=== PATIENT | male | born 1950 | race Caucasian/White ===

== ENCOUNTER 2022-06-20 08:20 | Outpatient (CLI) | payer MEDICARE, SELFPAY | END 2022-06-20 08:21 | disposition home or self-care (01) | LOC: NFLDREF 06-22 04:20 | PROVIDERS: PCP Internal Medicine; Referring Provider Internal Medicine; Visit Provider Internal Medicine | DX: Z00.00 Encounter for general adult medical examination without abnormal findings (principal); E78.5 Hyperlipidemia, unspecified; Z12.5 Encounter for screening for malignant neoplasm of prostate; E78.00 Pure hypercholesterolemia, unspecified; N40.0 Benign prostatic hyperplasia without lower urinary tract symptoms | CPT/HCPCS: 80053; 80061; 84153 ==

== ENCOUNTER 2022-07-04 13:29 | Emergency (ER) | payer MEDICARE, SELFPAY ==
[2022-07-04 13:38] VITALS: BP 124/85; PULSE 128; RESP 20; TEMP 37.2; O2SAT 94; BMI 25.1
--- NOTE | 2022-07-04 14:16 | ED_ITS ---
HPI - General Adult General Chief complaint: Shortness of Breath/Dyspnea Stated complaint: Aching, fatigue, fever Time Seen by Provider: 07/04/22 13:50 History of Present Illness HPI narrative: This 72-year-old female comes in reporting upper respiratory symptoms for the past couple days. He states that he had to tests for COVID that he administered and both returned positive. He reports occasional cough and has had some body aches and pains. He arrives with normal vital signs except for a heart rate that is increased at around 125-130 beats per minute. His oximetry is at 94% on room air. He states that he is otherwise healthy and recently had a history and physical. He is taking atorvastatin and omeprazole and tadalafil. Related Data Home Medications Medication Instructions Recorded Confirmed latanoprost 0.005 % eye drops 1 drp ophthalmic (eye) .Bedtime 06/26/22 07/04/22 Previous Rx's Medication Instructions Recorded atorvastatin 40 mg tablet 40 mg PO .hs #90 tabs 06/26/22 omeprazole 20 mg capsule,delayed 20 mg PO QDAY GERD #90 caps 06/26/22 release tadalafil 2.5 mg tablet (Cialis) 2.5 mg PO QDAY BPH #30 tabs 06/26/22 acetaminophen 300 mg-codeine 30 mg 1 tab PO Q6H PRN pain #15 tabs 07/04/22 tablet nirmatrelvir 150 mg-ritonavir 100 See Rx Instructions PO .COMPLEX 07/04/22 mg tablets in a dose pack (EUA) #20 ea (Paxlovid) Allergies Allergy/AdvReac Type Severity Reaction Status Date / Time No Known Drug Allergies Allergy Verified 06/26/22 08:10 Review of Systems Status of ROS: Reports: 10 or more systems reviewed and unremarkable except as noted in History and below Narrative: Constitutional: No fevers, no weight gain or loss. Generalized body aches and pains. Eyes: No discharge. No vision changes. HENT: No congestion, no sore throat, no ear pain. Cardiovascular: No chest pain, no palpitations. Respiratory: No shortness of breath, no wheezes. He reports a cough. Gastrointestinal: No abdominal pain, no vomiting, no diarrhea. Genitourinary: No dysuria, no hematuria. Musculoskeletal: Normal range of motion. Skin: No rashes, no pruritis. Neurological: No dizziness, weakness, sensory change, speech change. Endo/Heme/Allergies: No bruising or bleeding. No polydipsia. Pysch: no suicidality, no anxiety, no insomnia. All other systems reviewed and are negative. [facility] Medical History (Updated 07/04/22 @ 16:26 by Arnel Sexton MD) BPH (benign prostatic hyperplasia) ?N40.0 - Benign prostatic hyperplasia without lower urinary tract symptoms (ICD-10) History of colonic polyps (07/05/11) ?Z86.010 - Personal history of colonic polyps (ICD-10) Low back pain ?M54.50 - Low back pain, unspecified (ICD-10) Seborrheic keratosis ?L82.1 - Other seborrheic keratosis (ICD-10) Sinusitis ?J32.9 - Chronic sinusitis, unspecified (ICD-10) Surgical History (Updated 06/21/22 @ 14:09 by Iram Carr) History of colonoscopy (07/05/11) ?Z98.890 - Other specified postprocedural states (ICD-10) History of inguinal hernia repair (2013) ?Z98.890 - Other specified postprocedural states (ICD-10) ?Z87.19 - Personal history of other diseases of the digestive system (ICD-10) Social History Smoking Status: Never smoker Do you use any of these nicotine containing products: None Second hand tobacco smoke exposure: No How often do you have a drink containing alcohol: monthly or less How many standard drinks containing alcohol do you have on a typical day: 1 or 2 How often do you have six or more drinks on one occasion: Never AUDIT-C Alcohol total score: 1 Non-prescribed substance use: denies use Little interest or pleasure in doing things: not at all Feeling down, depressed, or hopeless: not at all service: No Exam Narrative: Exam Narrative: Constitutional: Well-developed, well-nourished, no acute distress. HEENT: Normocephalic, atraumatic. Neck: Normal range of motion. Nontender. Supple. Heart: Regular. No murmurs. Tachycardia. Intact distal pulses. Lungs: Clear to auscultation. No chest discomfort. No wheezes, rhonchi, or rales. Abdomen: Normal bowel sounds. Nontender. No rebound tenderness. Genitalia: Deferred. Back: No midline tenderness. Normal range of motion. Extremities: Normal range of motion. No injury. Skin: Intact. No rash. Warm. No erythema or pallor. Neurologic: No altered sensation. No weakness. Alert and oriented. Psychiatric: No suicidality. No anxiety or depression. No insomnia. Nursing notes and vitals signs are reviewed. Const: Vital Signs, click to edit/add: Vital Signs - 24 hr 07/04/22 13:38 Temperature 98.9 F Pulse Rate [Pulse Oximeter] 128 H Respiratory Rate 20 Blood Pressure [Ri ght Upper Arm] 124/85 Pulse Oximetry 94 Oxygen Delivery Me thod Room Air Course Vital Signs Vital signs: Initial Vital Signs Temperature 98.9 F 07/04/22 13:38 Temperature Source Temporal Artery Scan 07/04/22 13:38 Pulse Rate 128 H 07/04/22 13:38 Pulse Rhythm Regular 07/04/22 13:38 Pulse Strength 3+ Normal 07/04/22 13:38 Respiratory Rate 20 07/04/22 13:38 Blood Pressure 124/85 07/04/22 13:38 Blood Pressure Mean 98 07/04/22 13:38 Blood Pressure Position Sitting 07/04/22 13:38 Pulse Oximetry 94 07/04/22 13:38 Oxygen Delivery Method Room Air 07/04/22 13:38 Vital Signs Temperature 98.9 F 07/04/22 13:38 Pulse Rate 128 H 07/04/22 13:38 Respiratory Rate 20 07/04/22 13:38 Blood Pressure 124/85 07/04/22 13:38 Pulse Oximetry 94 07/04/22 13:38 Oxygen Delivery Method Room Air 07/04/22 13:38 Temperature 98.9 F 07/04/22 13:38 Pulse Rate 128 H 07/04/22 13:38 Respiratory Rate 20 07/04/22 13:38 Blood Pressure 124/85 07/04/22 13:38 Pulse Oximetry 94 07/04/22 13:38 Oxygen Delivery Method Room Air 07/04/22 13:38 Medical Decision Making MDM Narrative Medical decision making narrative: This 72-year-old male comes in with symptoms suspicious for COVID. He did do a home test twice but it was within test unit each time. Testing here today confirms a positive COVID result. The patient does have tachycardia but is maintaining oximetry on room air at around 96-97%. I discussed treatment options and the patient is interested in using Paxil of id. He is taking a couple medications that will need to be discontinued during this time, namely atorvastatin and tadalafil. He also received a prescription for some tablets of Tylenol 3 for symptomatic relief. I advised him to return if becoming more short of breath or if oximetry is below 90% at rest. He states that he does have an oximeter that he can use at home as needed. Lab Data Labs: Lab Results 07/04/22 Range/Units 13:52 SARS-CoV-2 (PCR) POSITIVE SARS-CoV-2 A (Negative) Influenza Type A (PCR) Negative PCR FLU A (Negative) Influenza Type B (PCR) Negative PCR FLU B (Negative) RSV (PCR) Negative PCR RSV (Negative) ECG Data Attestation: I personally reviewed and interpreted this ECG as follows: Interpretation: Sinus tachycardia, rate 118 beats per minute. There are no specific ST or T- wave abnormalities. Discharge Plan Discharge Clinical Impression: COVID-19 Patient Disposition: Home, Self-Care Condition: Unchanged Additional Instructions: Take Paxil of it as directed. Hold atorvastatin and tadalafil while taking this medicine. Follow up with MD or return if worsening symptoms happen. Prescriptions: New Paxlovid (EUA) 150-100 mg tablets,dose pack See Rx Instructions PO .COMPLEX Qty: 20 0RF Rx Instructions: orally per package directions acetaminophen-codeine 300-30 mg tablet 1 tab PO Q6H PRN (Reason: pain) Qty: 15 0RF No Action latanoprost 0.005 % drops 1 drp ophthalmic (eye) .Bedtime atorvastatin 40 mg tablet 40 mg PO .hs Qty: 90 3RF omeprazole 20 mg capsule,delayed release(DR/EC) 20 mg PO QDAY Qty: 90 3RF tadalafil [Cialis] 2.5 mg tablet 2.5 mg PO QDAY Qty: 30 3RF Follow Up/Referrals: Ernst Esparza MD [Primary Care Provider] - Stand Alone Forms: [employer] Info Instructions
[2022-07-04 16:00] LABS: PCR FLU A Negative PCR FLU A (Negative); PCR FLU B Negative PCR FLU B (Negative); PCR RSV Negative PCR RSV (Negative)
[2022-07-04 16:17] LABS: SARS PCR* POSITIVE SARS-CoV-2 (Negative)
[2022-07-04 16:48] VITALS: RESP 20
== END 2022-07-04 16:45 | disposition home or self-care (01) ==
PROVIDERS: Emergency Provider Emergency Medicine Emergency Medical Services; PCP Internal Medicine
DX: U07.1 COVID-19 (principal)
CPT/HCPCS: 87631; 93005; 99284

== ENCOUNTER 2023-06-03 08:02 | Outpatient (CLI) | payer MEDICARE, SELFPAY | END 2023-06-03 08:03 | disposition home or self-care (01) | LOC: NFLDREF 06-13 14:58 | PROVIDERS: PCP Internal Medicine; Referring Provider Internal Medicine; Visit Provider Internal Medicine | DX: E78.5 Hyperlipidemia, unspecified (principal); Z12.5 Encounter for screening for malignant neoplasm of prostate | CPT/HCPCS: 80053; 80061; G0103 ==

== ENCOUNTER 2024-06-05 08:33 | Outpatient (CLI) | payer MEDICARE, SELFPAY | END 2024-06-05 08:34 | disposition home or self-care (01) | LOC: NFLDREF 06-07 16:43 | PROVIDERS: PCP Internal Medicine; Referring Provider Internal Medicine; Visit Provider Internal Medicine | DX: N40.0 Benign prostatic hyperplasia without lower urinary tract symptoms (principal); E78.5 Hyperlipidemia, unspecified; E78.00 Pure hypercholesterolemia, unspecified; Z12.5 Encounter for screening for malignant neoplasm of prostate | CPT/HCPCS: 80053; 80061; G0103 ==

== ENCOUNTER 2024-06-26 08:02 | Outpatient (CLI) | payer MEDICARE, SELFPAY ==
--- NOTE | 2024-06-26 08:15 | CRLHL7_ITS ---
For Patients: As a result of the 21st Century Cures Act, medical imaging exams and procedure reports are released immediately into your electronic medical record. You may view this report before your referring provider. If you have questions, please contact your health care provider. EXAM: MRI OF THE LEFT SHOULDER WITHOUT CONTRAST CLINICAL INDICATION: Left shoulder pain. COMPARISON PLAIN FILMS: None available at time of interpretation. COMPARISON CROSS-SECTIONAL IMAGING STUDIES: None available at time of interpretation. TECHNICAL: Axial, sagittal oblique and coronal oblique T1, PD, PD FS and T2-weighted images. Shoulder surface coil. FINDINGS: ROTATOR CUFF TENDONS AND MUSCLES AND DELTOID: Supraspinatus: Diffuse increased signal and thickening in the supraspinatus tendon consistent with moderate tendinopathy. In addition there are few linear areas of increased T2 signal within the supraspinatus tendon which could be due to low-grade interstitial tears more prominent tendinopathy. No focal tendon gap. No muscle atrophy or edema. Infraspinatus: Ljpw-fr-zjzwufal tendinopathy. No tendon tear. No muscle atrophy or edema. Subscapularis: No tendinosis, tendon tearing, muscle atrophy or muscle edema. Teres Minor: No tendinosis, tendon tearing, muscle atrophy or muscle edema. Deltoid: No muscle atrophy or edema. BURSA: Subacromial-subdeltoid: Small amount of fluid in the subacromial subdeltoid bursa. BICEPS TENDON, LONG HEAD: The long head of the biceps tendon is appropriately positioned within the bicipital groove without tendon subluxation or dislocation. The biceps gustavo mechanism is intact. The biceps anchor appears grossly intact. There is no significant tendinosis or tendon tearing. CORACOACROMIAL ARCH: Acromial Morphology: Type 2 acromial morphology. No abnormal lateral or anterior downward sloping of the acromion. Moderate size subacromial enthesophyte. No os acromiale. Acromiohumeral Interval: Normal. Coracohumeral Interval: Normal. ACROMIOCLAVICULAR JOINT REGION: AC Joint: Mild arthropathy with inferior marginal osteophytes. Ligaments: The coracoclavicular ligaments are intact. GLENOHUMERAL JOINT: Joint space: No effusion or synovitis. Humeral Head Articular Cartilage: No focal cartilage defect or underlying subchondral marrow changes. Glenoid Articular Cartilage: No focal cartilage defect or underlying subchondral marrow changes. Labrum: No labral tear or paralabral cyst. Alignment: Maintained. Capsule: No capsular edema or abnormal capsular thickening. OSSEOUS STRUCTURES: No fracture, marrow edema or marrow replacement process. OTHER FINDINGS: There is no abnormality within the suprascapular or spinoglenoid notches nor within the quadrilateral space. No axillary adenopathy or mass. IMPRESSION: 1. Moderate supraspinatus tendinopathy. Focal areas of increased T2 signal in the supraspinatus tendon could be due to interstitial tears or more prominent tendinopathy. No focal tendon gap. 2. Mild to moderate infraspinatus tendinopathy. 3. Fluid in the subacromial subdeltoid bursa. 4. Moderate-sized subacromial enthesophyte. 5. Mild arthropathy in the acromioclavicular joint. Dictated by Richardson Ferreira MD @ 06/26/2024 12:38:17 PM (Electronically Signed)
== END 2024-06-26 08:03 | disposition home or self-care (01) ==
LOC: MRI 08:03
PROVIDERS: PCP Internal Medicine; Visit Provider Internal Medicine
DX: M25.512 Pain in left shoulder (principal); M75.52 Bursitis of left shoulder; M12.812 Other specific arthropathies, not elsewhere classified, left shoulder; M71.9 Bursopathy, unspecified
CPT/HCPCS: 73221

== ENCOUNTER 2024-08-17 10:05 | Outpatient (CLI) | payer MEDICARE, SELFPAY ==
--- NOTE | 2024-08-17 11:14 | P.ANES_ITS ---
Anesthesia Charges Start Date/Time Anesthesia Start Date: 08/17/24 Anesthesia Start Time: 10:47 Stop Date/Time Anesthesia Stop Date: 08/17/24 Anesthesia Stop Time: 11:08 Summary Extremes of Age - Over 70 or under 1: LAWN MOWER SHARPENER Coding CPT Codes CPT Codes: PIPPA LWR INTST SCR COLSC - 01394 ([id number]) P2 - PATIENT W/MILD SYST DISEASE, QX - LAWN MOWER SHARPENER SVC W/ MD MED DIRECTION, QK - TUBE DRAW HELPER 2-4 CNCRNT ANES PROC Additional Codes: Summary - Extremes of Age - Over 70 or under 1: LAWN MOWER SHARPENER ([id number])
--- NOTE | 2024-08-17 11:14 | W.ANESCHARGE ---
Anesthesia Charges Start Date/Time Anesthesia Start Date: 08/17/24 Anesthesia Start Time: 10:47 Stop Date/Time Anesthesia Stop Date: 08/17/24 Anesthesia Stop Time: 11:08 Summary Extremes of Age - Over 70 or under 1: BUSINESS INTELLIGENCE DIRECTOR Coding CPT Codes CPT Codes: PIPPA LWR INTST SCR COLSC - 09260 ([id number]) P2 - PATIENT W/MILD SYST DISEASE, QX - BUSINESS INTELLIGENCE DIRECTOR SVC W/ MD MED DIRECTION, QK - JET WORKER 2-4 CNCRNT ANES PROC Additional Codes: Summary - Extremes of Age - Over 70 or under 1: BUSINESS INTELLIGENCE DIRECTOR ([id number])
--- NOTE | 2024-08-17 11:41 | W.ANESCHARGE ---
Anesthesia Charges Start Date/Time Anesthesia Start Date: 08/17/24 Anesthesia Start Time: 10:47 Stop Date/Time Anesthesia Stop Date: 08/17/24 Anesthesia Stop Time: 11:08 Summary Extremes of Age - Over 70 or under 1: MDA Coding CPT Codes CPT Codes: ANES LWR INTST SCR COLSC - 52255 ([id number]) QK - TELECOMMUNICATOR SUPERVISOR 2-4 CNCRNT ANES PROC, QX - MOTION GRAPHICS DESIGNER SVC W/ MD MED DIRECTION, P2 - PATIENT W/MILD SYST DISEASE Additional Codes: Summary - Extremes of Age - Over 70 or under 1: MDA ([id number])
== END 2024-08-17 10:06 | disposition home or self-care (01) ==
LOC: OP CLINIC 10:06
PROVIDERS: PCP Internal Medicine; Visit Provider Internal Medicine
DX: Z12.11 Encounter for screening for malignant neoplasm of colon (principal); Z86.0109 Personal history of other colon polyps; K57.30 Diverticulosis of large intestine without perforation or abscess without bleeding
CPT/HCPCS: 00812; 45378; 99100; J2704

== ENCOUNTER 2024-09-01 09:00 | Outpatient (RCR) | payer MEDICARE, SELFPAY ==
--- NOTE | 2024-08-13 16:31 | PT.OPEX ---
PT [place] Outpatient Eval PT [facility] Outpatient Eval Start: 08/13/24 08:25 Freq: Status: Active Protocol: Document 08/13/24 08:26 FELISHA (Rec: 08/13/24 16:30 [facility] [id number]) E-signed By Acacia Haro PT Physical Therapy Outpatient Evaluation Insurance Information Recert Due Date 11/10/24 Medical Diagnosis LEFT SHOULDER RTC TENDINOPATHY INCOMPLETE TEAR OF RTC OA Treating Diagnosis SHOULDER PAIN SHOULDER STIFFNESS Imaging Report Information IMPRESSION: MRI 06/26/24 1. Moderate supraspinatus tendinopathy. Focal areas of increased T2 signal in the supraspinatus tendon could be due to interstitial tears or more prominent tendinopathy. No focal tendon gap. 2. Mild to moderate infraspinatus tendinopathy. 3. Fluid in the subacromial subdeltoid bursa. 4. Moderate-sized subacromial enthesophyte. 5. Mild arthropathy in the acromioclavicular joint. Referring MD MOINQUE PARSONS Subjective Preferred Name DARNELL Tierney PATIENT REPORTS AN INCIDENT ~ 2YRS AGO THAT MAY HAVE BEEN THE ONSET OF HIS LEFT SHOULDER PAIN. HE DESCRIBES DOING TO SOME WORK WHERE HE WAS PAINTING QUITE A BIT AND MUCH IT OH. HE STATES, I COULD FEEL IT THEN BUT I JUST THOUGHT THE SORENESS WOULD GO AWAY. AND IT DID FOR THE MOST PART. BUT, IN THE LAST 6-9MO IT HAS PROGRESSIVELY INCREASED . HE DENIES ANY LIMITATION IN REGARD TO HIS DAILY ACTIVITIES BUT RATHER ADAPTING HIS REACHING AND JUST GETTING THROUGH IT IF THE ACTIVITY WAS PAINFUL. HE DOES NOT USE ANY OTC NOR DOES HE ICE BUT DOES PUT TOPICAL ANALGESICS ON HIS SHOULDER INTERMITTENTLY. HE IS HOPING TO IMPROVE HIS SYMPTOMS AND AVOID ANY SURGICAL INTERVENTION. Pain Comments Date of Last Physician Visit 07/14/24 Current Work Status Retired Occupation RETIRED SMALL ANIMAL VETERINARIAN/VACUUM CLEANER MECHANIC Precautions Treatment Precautions/Contraindications PMHX: OA B/KNEES, GERD Therapy Limitations/Systems Review Not Limited Objective Other/Pertinent Objective CERVICAL ROM WNL SHOULDER AROM WNL INCREASED DISCOMFORT ENDRANGE FLEX AND ER. NECK/SHOULDER MMT: 5/5 WITH INCREASED DISCOMFORT WITH ER, FLEX SPECIAL TESTS: CERVICAL: SPURLINGS (-) CERVICAL DISTRACTION (-) IMPINGEMENT: BENTLEY-DENA (+) NEER (+) ANNETTE PAINFUL ARC (+) TENDONITIS: SPEEDS (+) YERGASON'S JOBES (EMPTYCAN) FULL CAN (+) LIFT OFF HORN BLOWER DROP ARM (-) LABRAL TEAR/INSTABILITY/AC SCARF TEST (+) PAXIONO APPREHENSION PLEITEZ'S : (-) JOINT MOBILITY/PALPATION: CAPSULAR HYPOMOBILITY INFERIORLY AND POSTERIORLY; TENDER TO TOUCH PROXIMAL BICEPS, POSTERIOR CAP TENDERNESS Assessment Assessment/Impression PATIENT IS A [address] PARSONS TO EVAL AND TREAT LEFT RTC TENDINOPATHY. PATIENT DEMONSTRATES SIGNS AND SYMPTOMS CONSISTENT WITH LEFT RTC TENDINOPATHY CONTRIBUTING TO THEIR FUNCTIONAL IMPAIRMENTS OF ADL'S ESPECIALLY DONNING/DOFFING SHIRT/COAT, REACHING OUT TO SIDE. PATIENT DESCRIBES THE FOLLOWING TRIGGERS REACHING, LIFTING, ENDRANGE MVMTS WHICH ARE ALLEVIATED BY REST. PATIENT HAS NOTABLE OBJECTIVE FINDING INCLUDING (+) IMPINGEMENT PROVOCATION TEST, BICEPS AND SUPRA/INFRA SPINATUS TENDINOPATHY WHICH ALL ARE CONTRIBUTING TO THE CLINICAL IMPRESSION. PATIENT IS A GOOD CANDIDATE FOR SKILLED PHYSICAL THERAPY TO ADDRESS AFOREMENTIONED DEFICITS ABOVE IN ORDER TO RETURN TO ASYMPTOMATIC STATUS AND RETURN TO UNRESTRICTED MVMT. INTERVENTION IS NECESSARY BY WAY OF THERAPEUTIC EXERCISE, MANUAL THERAPY, NEUROMUSCULAR RE- EDUCATION, STABILIZATION/ PROPRIOCEPTION, MODALITIES FOR SYMPTOM MGMT, PATIENT EDUCATION, DRY NEEDLING PLEASE REFER TO APPROPRIATE SECTION WITHIN THIS EVALUATION FOR COMPLETE LIST OF GOALS AND PLAN OF CARE. DISCHARGE PLAN AND CRITERIA IS FOR PATIENT TO ACHIEVE THE GOALS LISTED BELOW OR UNTIL MAX POTENTIAL MET. PATIENT VERBALIZED UNDERSTANDING AND AGREEABLE TO POC, FREQ, AND GOALS ESTABLISHED. Primary Functional Limitations REACHING OH, OUT TO SIDE, LATERALLY Plan of Care Rehabilitation Potential Good Physical Therapy Goals IN 6-10 VISITS: 1. DECREASE SHOULDER PAIN TO < /2-3/10 WITH DAILY ACTIVITIES AND WITH THE PROGRESSION OF HIS HEP OVER THE NEXT 4 WEEKS. 2. DEMONSTRATE PAIN FREE AROM OVER THE NEXT 4-6 WEEKS DURING DAILY ACTIVITIES WITHOUT FLARE UPS OF SYMPTOMS. 3. PATIENT WILL VERBALIZED UNDERSTANDING OF POSTURING AND BODY MECHANICS IT RELATES TO DECREASING STRESS, IMPROVED SHOULDER MECHANICS, AND DECREASED SYMPTOMS. 4.PATIENT WILL DEMONSTRATES IMPROVED STRENGTH TO FACILITATE RETURN TO DAILY ACTIVITIES WITH LESS SYMPTOMS AND DECREASED OPPORTUNITIES FOR FLARE UP OF PAIN 5. PATIENT WILL BE INDEPENDENT WITH HIS INDIVIDUALIZED AND COMPREHENSIVE HEP WITHIN THE NEXT 6-8 WEEKS FOR PROGRESSION TWD ABOVE MENTION GOALS, CONTINUED MGMT OF SYMPTOMS, AND ONGOING SELF IMPROVEMENTS IN POSTURING/STRENGTH/ STABILIZATION. Coordination/Communication With Referral Source Treatment Plan/Direct Interventions Dry Needling,Electrical Stimulation,Gait Training,Heat ,Ice/Cold/Vasopneumatic,Joint Mobilization,Manual Therapy, Neuromuscular Re-ed,Self-Care/ Home Management,Therapeutic Activities,Therapeutic Exercises,Ultrasound Frequency/Duration 1X/WK Patient Will Be Discharged From Therapy Completion of LTG(s), Independently Progressing Evaluation Billing Untimed Code Treatment Minutes 35 Complexity Moderate Certification Information Initial Certification Date 08/13/24 Ending Certification Date 11/10/24 Provider Signature Required Yes Provider Signature Shows Agreement With POC & Medical Necessity Physician NPI Number Write NPI# Here Physician Comment/Change : Physician Signature & Date Requested Please Sign/Date Here
== END 2024-10-21 14:36 | disposition home or self-care (01) ==
PROVIDERS: PCP Internal Medicine; Visit Provider Orthopaedic Surgery Sports Medicine
DX: M75.102 Unspecified rotator cuff tear or rupture of left shoulder, not specified as traumatic (principal); M19.012 Primary osteoarthritis, left shoulder; M25.112 Fistula, left shoulder; Z51.89 Encounter for other specified aftercare
CPT/HCPCS: 97110; 97140; 97162; 97535